=== PATIENT | female | born 1995 ===

== ENCOUNTER 2021-09-10 03:09 | Emergency (ER) | payer OTHER, SELFPAY ==
[2021-09-10] VITALS (18 sets, daily range): BP systolic 109–136; BP diastolic 58–83; PULSE 113–151; RESP 15–24; O2SAT 98–100
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
[2021-09-10] MEDS: ONDANSETRON 4 MG/2 ML INJ IV ×2 (03:33→10:09)
--- NOTE | 2021-09-10 03:33 | PC.NURSE ---
Pt's father, Osbaldo Greenberg, can be reached at [phone]. He lives in [place] where pt is from.
--- NOTE | 2021-09-10 03:47 | ED.TRAUMA ---
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 Note
--- NOTE | 2021-09-10 04:08 | PC.NURSE ---
Pt pulling at C-collarand VS monitoring equipment, taking off sticker pulse ox probe and all tele leads. Pt refusing to let these be replaced. Provider aware. Pt nearly pulled out her hand IV. Pt suspicious of staff and cussing at staff.
--- NOTE | 2021-09-10 04:15 | PC.NURSE ---
Pt sitting up in bed. This RN immediately to bedside reminding pt she needs to lay flat while she is still under c-spine precautions. Rationale given for this. No evidence of learning noted. Pt requesting to get up to use the restroom. Pt informed she cannot get up while under c-spine precautions but was offered a bedpan or a purewick. After at-length discussion, pt opted for a bedpan. Female staff member recruited for assistance with bedpan use. Pt again tore off all VS monitoring equipment.
[2021-09-10 04:16] LABS: Add Manual Diff / Slide Review NO; Basophils Absolute Auto 0 /uL (0-100); Basophils Percent Auto 0.3 % (0-2); Eosinophils Absolute Auto 300 /uL (0-450); Eosinophils Percent Auto 2.8 % (2-4); Hemoglobin 10.8 g/dL (12.0-16.0); Lymphocytes Absolute Auto 1400 /uL (1100-4500); Lymphocytes Percent Auto 13.8 % (25-40); Mean Corpuscular HGB Conc 33.7 % (30-36); Mean Corpuscular Hemoglobin 30.2 PG (26-34); Mean Corpuscular Volume 89.6 fL (80-100); Monocytes Absolute Auto 400 /uL (0-900); Monocytes Percent Auto 4.4 % (3-14); Neutrophils Absolute Auto 8000 /uL (1500-7000); Neutrophils Percent Auto 78.7 % (50-75); Platelet Count 213 X10^3/uL (150-400); Red Blood Cell Count 3.57 X10^6/uL (4.0-5.2); Red Cell Distribution Width 13.4 % (11.6-14.8); White Blood Cell Count 10.1 X10^3/uL (4.5-11.0)
[2021-09-10 04:18] LABS: Alanine Aminotransferase 12 IU/L (<35); Albumin 2.8 g/dL (3.5-5.0); Albumin Globulin Ratio 1.3 (1.0-2.8); Alkaline Phosphatase 48 U/L (38-126); Aspartate Aminotransferase 15 IU/L (14-36); BUN Creatinine Ratio 11.4 (6-22); Bilirubin Total 0.2 mg/dL (0.2-1.3); Blood Urea Nitrogen 5 mg/dL (7-17); Calcium 6.6 mg/dL (8.4-10.2); Carbon Dioxide 18 mmol/L (22-32); Chloride 115 mmol/L (98-107); Estimated Glomerular Filt Rate > 60 mL/min (>60); Ethanol (ETOH) 239 mg/dL; Globulin 2.1 g/dL (1.7-4.1); Glucose 91 mg/dL (70-100); HEMOLYSIS < 15 (0-50); Lipase 67 U/L (23-300); Sodium 142 mmol/L (137-145); Total Protein 4.9 g/dL (6.3-8.2)
--- NOTE | 2021-09-10 05:00 | PC.NURSE ---
Pt continuing to pull at c-collar and lossening it. Pt forcefully pushing staff away when attempts are made to tighten c-collar. Provider aware of this. Will continue to attempt to tighten c-collar.
[2021-09-10 05:03] LABS: Pregnancy Test Serum,Qual Negative (Negative)
--- NOTE | 2021-09-10 05:42 | DI.CT.S_ITS ---
PROCEDURE: CT ANGIO HEAD AND NECK INDICATIONS: C2 fracture TECHNIQUE: Helical axial CT of the head and neck was obtained after intravenous contrast injection utilizing an angiographic technique and reformatted in multiple planes. Radiation dose reduction was achieved utilizing automated exposure control and/or parameter adjustment according to patient's size. COMPARISON: None. FINDINGS: Cerebral CT Angiogram: Internal carotid arteries: No acute findings. Intracranial ICA are patent with no significant stenosis. No occlusion. No aneurysm. Anterior cerebral arteries: Unremarkable. No significant stenosis. No occlusion. No aneurysm. Middle cerebral arteries: Unremarkable. No significant stenosis. No occlusion. No aneurysm. Posterior cerebral arteries: Unremarkable. No significant stenosis. No occlusion. No aneurysm. Basilar artery: Unremarkable. No significant stenosis. No occlusion. No aneurysm. Vertebral arteries: Unremarkable as visualized. Dural venous sinuses: Unremarkable given phase of enhancement. Other: Arterial phase brain parenchyma is unremarkable. Neck CT Angiogram: Internal carotid arteries: Unremarkable. No significant stenosis. No dissection or occlusion. Common carotid arteries: Unremarkable. No significant stenosis. No dissection or occlusion. External carotid arteries: Unremarkable. No occlusion. Vertebral arteries: Unremarkable. No significant stenosis. No dissection or occlusion. Other: C2 lateral mass fracture again noted Aortic Arch and Mediastinum: Partially visualized aortic arch unremarkable without evidence of aneurysm. Origins of the great vessels unremarkable. IMPRESSION: 1. Unremarkable CT angiogram of the head and neck without aneurysm, dissection or large vessel occlusion. 2. Stable C2 left lateral mass fracture Note: Any quantitative measurements of proximal ICA stenosis were performed using NASCET criteria. Approved by: Angel Dela Cruz M.D. on 09/10/2021 at 8:12
[2021-09-10 06:05] LABS: Alanine Aminotransferase 18 IU/L (<35); Albumin 4.6 g/dL (3.5-5.0); Albumin Globulin Ratio 1.7 (1.0-2.8); Alkaline Phosphatase 74 U/L (38-126); Aspartate Aminotransferase 23 IU/L (14-36); BUN Creatinine Ratio 9.8 (6-22); Bilirubin Total 0.2 mg/dL (0.2-1.3); Blood Urea Nitrogen 6 mg/dL (7-17); Calcium 8.8 mg/dL (8.4-10.2); Carbon Dioxide 29 mmol/L (22-32); Chloride 107 mmol/L (98-107); Estimated Glomerular Filt Rate > 60 mL/min (>60); Globulin 2.7 g/dL (1.7-4.1); Glucose 133 mg/dL (70-100); HEMOLYSIS < 15 (0-50); Potassium 3.7 mmol/L (3.4-5.1); Sodium 145 mmol/L (137-145); Total Protein 7.3 g/dL (6.3-8.2)
--- NOTE | 2021-09-10 06:30 | PC.NURSE ---
Pt placed in ASPEN collar at this time. Pt reminded the importance of maintaining c-spine precautions with her injury. Pt sister at bedside to help remind pt of this.
[2021-09-10 07:09] LABS: UR Morphine/Opiate cutoff 300 Negative (Negative); Ur Creatinine Normal (Normal); Ur Specific Gravity Normal (Normal); Urine Amphetamines Negative (Negative); Urine Barbiturates Negative (Negative); Urine Benzodiazepines Negative (Negative); Urine Cocaine Negative (Negative); Urine MDMA Negative (Negative); Urine Methamphetamines Negative (Negative); Urine Phencyclidine Negative (Negative); Urine Tetrahydrocannabinol Negative (Negative); Urine pH Normal (Normal)
[2021-09-10 07:10] LABS: Urine Methadone Negative (Negative); Urine Oxycodone Negative (Negative); Urine Tricyclic Antidepressant Negative (Negative)
[2021-09-10 07:19] LABS: COVID19 -Nasal RAPID Negative (Negative)
[2021-09-10] MEDS: HYDROMORPHONE 0.5 MG INJ IV (10:09)
--- NOTE | 2021-09-10 10:11 | PC.NURSE ---
tachycardia episode to 150 with increased pain to head and neck.
[2021-09-10] MEDS: METOCLOPRAMIDE 10 MG/2 ML INJ IV (12:57)
[2021-09-10] MEDS: ACETAMINOPHEN 325 MG TABLET 975 MG PO (12:58)
--- NOTE | 2021-09-10 13:22 | PC.NURSE ---
Patient was able to ambulate with contact guard assist to bathroom without difficulty.
== END 2021-09-10 13:46 | disposition home or self-care (01) ==
PROVIDERS: Emergency Medicine; Emergency Provider Emergency Medicine
DX: S12.190A Other displaced fracture of second cervical vertebra, initial encounter for closed fracture (principal); V43.62XA Car passenger injured in collision with other type car in traffic accident, initial encounter; R06.02 Shortness of breath; R47.81 Slurred speech; R00.0 Tachycardia, unspecified; R11.0 Nausea; F10.120 Alcohol abuse with intoxication, uncomplicated; Y90.7 Blood alcohol level of 200-239 mg/100 ml; Z20.822 Contact with and (suspected) exposure to COVID-19
CPT/HCPCS: 36415; 70450; 70486; 70496; 70498; 71260; 72125; 74177; 80053; 80305; 80320; 81003; 81025; 83690; 84703; 85025; 86850; 86900; 86901; 87635; 96374; 96375; 96376; 99284; C9803; J1170; J2405; J2765